=== PATIENT | female | born 1985 | race Caucasian/White ===

== ENCOUNTER 2017-12-13 10:14 | Emergency (ER) | payer MEDICAID, SELFPAY ==
[2017-12-13 10:45] VITALS: BP 127/72; PULSE 76; RESP 20; TEMP 36.8; O2SAT 98
--- NOTE | 2017-12-13 11:17 | ED_ITS ---
[facility] [place] Disposition Clinical Impression: Viral upper respiratory illness Disposition: Home, Self-Care Condition on Discharge: Good Instructions: Influenza Additional Instructions: ? Start Tamiflu today if you are going to take it. Discussed risk and possible benefits. ? Lots of rest ? Increase Fluids water, Gatorade, powerade, pedialyte,if /toddler/child ? Alternate Tylenol and / or ibuprofen as discussed for fever, aches, chills x 24 hours without medication for symptoms ? Follow up IMMEDIATELY for new or worsening Symptoms OR no noticeable improvement over the next 48-72 hours, 911 for difficulty or breathing ? You or your child area contagious until no fever, aches, chills for 24 hours with medication for symptoms Prescriptions: Brompheniramine/Pseudoephed/Dm [Bromfed DM Cough Syrup 5mL] 10 ml PO Q4HP PRN # 350 ml PRN Reason: Cough Referrals: Provider,Referral, MD [Primary Care Provider] - Time of Disposition: 11:20 Medical Decision Making - Medical Records Medical records reviewed: Yes: I reviewed the patient's medical records. Vital Signs: 12/13/17 10:45 Temperature 98.2 F Temperature Source Temporal Artery Scan Pulse Rate [Right] 76 Respiratory Rate 20 Blood Pressure [Right Arm] 127/72 Blood Pressure Mean [Right Arm] 90 Blood Pressure Source [Right Arm] Automatic Cuff Blood Pressure Position [Right Arm] Sitting 02 Sat by Pulse Oximetry 98 Oxygen Delivery Method Room Air - Casey Inquiry Pt receiving controlled substance: No Casey was queried for this patient: No [facility] [place] HPI - General Stated complaint: diarrhea Mode of Arrival: Ambulatory Source of Information: Patient Limitations: No Limitations Description of Symptoms (Recalled from Triage Doc. 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 - Related Data Previous Rx's Medication Instructions Recorded Brompheniramine/Pseudoephed/Dm 10 ml PO Q4HP PRN #350 ml 12/13/17 [Bromfed DM Cough Syrup 5mL] Allergies Allergy/AdvReac Type Severity Reaction Status Date / Time No Known Allergies Allergy Verified 12/13/17 10:49 - Worker's Comp Is this a Worker's Comp case?: No [facility] History I have reviewed the patient's past medical history: Yes - Social History Alcohol Intake: never - Psychiatric History Expresses thoughts of harming self/others: None Suicide Plan Description: No Plan ROS Obtained: Yes All systems reviewed & no additional complaints - Constitutional Constitutional: Reports body ache, Reports chills, Reports fever(s) - ENT Ears, Nose, Mouth, and Throat: Reports nasal congestion, Reports sore throat - Gastrointestinal Gastrointestingal: Reports: diarrhea Physical Exam - General General appearance: alert, in no apparent distress - Expanded ENT Exam Nose exam: Present: sinus
[2017-12-13 11:25] VITALS: BP 132/88; PULSE 68; RESP 18; TEMP 37.1
[2017-12-13 14:46] LABS: UTC Influenza A Antigen Negative (Negative); UTC Influenza B Antigen Negative (Negative)
== END 2017-12-13 11:35 | disposition home or self-care (01) ==
PROVIDERS: Emergency Provider Nurse Practitioner
DX: J06.9 Acute upper respiratory infection, unspecified (principal)
CPT/HCPCS: 87804; 99202

== ENCOUNTER 2017-12-16 17:49 | Emergency (ER) | payer MEDICAID, SELFPAY ==
[2017-12-16 18:52] VITALS: BP 127/78; PULSE 66; RESP 18; TEMP 37; O2SAT 98; BMI 30.7
--- NOTE | 2017-12-16 19:14 | HMH.EDUTC ---
[facility] [place] Disposition Clinical Impression: Influenza-like illness, Exposure to the flu Disposition: Home, Self-Care Condition on Discharge: Good Instructions: DI for Influenza -- Adult Additional Instructions: * No sign of a bacterial infection. Your symptoms and exam are spot on for the flu. * Discussed tamiflu risks, side effects, risk of allergic reaction, and possible benefits. We even discussed hallucinations and uncontrollable fevers. Is currently but not often. We are weaning . Aware safety of nursing while taking tamiflu has not been established. Child (1 year old) and other Children are taking tamiflu. wants to take tamiflu still. Agrees to discuss with pharmacist tomorrow since I am concerned about the safety. * Lots of rest * Increase fluids, water, gatorade, powerade, pedialyte if /toddler/child * Monitor Temp. Tylenol every 4 hours as needed no more then 5 times a day or 4000mg in 24 hours and/or ibuprofen every 6 hours as needed no more then 3200mg in 24 hours (as long as your primary care doctor has told you that it is ok to take both) for fever/aches/pain. ER if fever no less than 101 despite tylenol and Ibuprofen * OTC cold/flu/sinus medication is ok but pick one. Do not take multiple different ones as they have similar ingredients and you can overdose on cold medication. * You (or your child) are contagious until no fever, aches, chills x 24 hours without medication for symptoms. * * Per hospital policy, Your throat swab was sent for culture. Those results are typically sent to your primary care. Be sure to follow up in 2-3 days if no improvement so they can review those results and treat if necessary. If you don't have primary care, I recommend you get one but in the mean time, you will have to return to a walk in clinic. Prescriptions: Oseltamivir Phosphate [Tamiflu 75mg Capsule] 75 mg PO BID #10 cap Referrals: Provider,Referral, MD [Primary Care Provider] - (Follow up IMMEDIATELY for new or worsening symptoms, improvement followed by suddenly feeling worse OR no noticeable improvement over the next 48-72 hours. 911 for difficulty breathing ) Time of Disposition: 19:35 Medical Decision Making Vital Signs: 12/16/17 18:52 Temperature 98.6 F Temperature Source Temporal Artery Scan Pulse Rate [Right Radial] 66 Respiratory Rate 18 Blood Pressure [Right Arm] 127/78 Blood Pressure Mean [Right Arm] 94 02 Sat by Pulse Oximetry 98 Oxygen Delivery Method Room Air - Lab Data Lab results reviewed: Yes: I reviewed the patient's lab results. Flu A neg Flu B neg - Casey Inquiry Pt receiving controlled substance: No [facility] [place] HPI - General Stated complaint: poss flu Time Seen by Provider: 12/16/17 19:14 Mode of Arrival: Family Vehicle Source of Information: Patient Limitations: No Limitations Description of Symptoms (Recalled from Triage Doc. by RN): PT C/O HEADACHE, FEVER, BODY ACHES, CHILL, HEAD CONGESTION. HEENT Symptoms (Recalled from RN notes): Yes (HEADACHE, BODY ACHE, CHILLS, FEVER, HEAD CONGESTION) Resp Symptoms (Recalled from RN notes): No Skin Symptoms (Recalled from RN notes): No MS Symptoms (Recalled from RN notes): No Functional Status (Recalled from RN notes): NA - History of Present Illness Provider Complaint: c/o sudden onset of headache and fatigue this morning that quickly progressed to chills, fever, rhinorrhea, scratchy throat, cough. Three kids at home w/ flu currently. Tylenol and motrin hasn't really helped. 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
--- NOTE | 2017-12-16 19:24 | ED_ITS ---
[facility] [place] Disposition Clinical Impression: Influenza-like illness, Exposure to the flu Disposition: Home, Self-Care Condition on Discharge: Good Instructions: DI for Influenza -- Adult Additional Instructions: * No sign of a bacterial infection. Your symptoms and exam are spot on for the flu. * Discussed tamiflu risks, side effects, risk of allergic reaction, and possible benefits. We even discussed hallucinations and uncontrollable fevers. Is currently but not often. We are weaning . Aware safety of nursing while taking tamiflu has not been established. Child (1 year old) and other Children are taking tamiflu. wants to take tamiflu still. Agrees to discuss with pharmacist tomorrow since I am concerned about the safety. * Lots of rest * Increase fluids, water, gatorade, powerade, pedialyte if /toddler/child * Monitor Temp. Tylenol every 4 hours as needed no more then 5 times a day or 4000mg in 24 hours and/or ibuprofen every 6 hours as needed no more then 3200mg in 24 hours (as long as your primary care doctor has told you that it is ok to take both) for fever/aches/pain. ER if fever no less than 101 despite tylenol and Ibuprofen * OTC cold/flu/sinus medication is ok but pick one. Do not take multiple different ones as they have similar ingredients and you can overdose on cold medication. * You (or your child) are contagious until no fever, aches, chills x 24 hours without medication for symptoms. * * Per hospital policy, Your throat swab was sent for culture. Those results are typically sent to your primary care. Be sure to follow up in 2-3 days if no improvement so they can review those results and treat if necessary. If you don' t have primary care, I recommend you get one but in the mean time, you will have to return to a walk in clinic. Prescriptions: Oseltamivir Phosphate [Tamiflu 75mg Capsule] 75 mg PO BID #10 cap Referrals: Provider,Referral, MD [Primary Care Provider] - (Follow up IMMEDIATELY for new or worsening symptoms, improvement followed by suddenly feeling worse OR no noticeable improvement over the next 48-72 hours. 911 for difficulty breathing ) Time of Disposition: 19:35 Medical Decision Making Vital Signs: 12/16/17 18:52 Temperature 98.6 F Temperature Source Temporal Artery Scan Pulse Rate [Right Radial] 66 Respiratory Rate 18 Blood Pressure [Right Arm] 127/78 Blood Pressure Mean [Right Arm] 94 02 Sat by Pulse Oximetry 98 Oxygen Delivery Method Room Air - Lab Data Lab results reviewed: Yes: I reviewed the patient's lab results. Flu A neg Flu B neg - Casey Inquiry Pt receiving controlled substance: No [facility] [place] HPI - General Stated complaint: poss flu Time Seen by Provider: 12/16/17 19:14 Mode of Arrival: Family Vehicle Source of Information: Patient Limitations: No Limitations Description of Symptoms (Recalled from Triage Doc. by RN): PT C/O HEADACHE, FEVER, BODY ACHES, CHILL, HEAD CONGESTION. HEENT Symptoms (Recalled from RN notes): Yes (HEADACHE, BODY ACHE, CHILLS, FEVER , HEAD CONGESTION) Resp Symptoms (Recalled from RN notes): No Skin Symptoms (Recalled from RN notes): No MS Symptoms (Recalled from RN notes): No Functional Status (Recalled from RN notes): NA - History of Present Illness Provider Complaint: c/o sudden onset of headache and fatigue this morning that quickly progressed to chills, fever, rhinorrhea, scratchy throat, cough. Three kids at home w/ flu currently. Tylenol and motrin hasn't really helped. - Related Data Home Medications
[2017-12-16 19:51] LABS: UTC Influenza A Antigen Negative (Negative); UTC Influenza B Antigen Negative (Negative)
[2017-12-16 20:12] VITALS: BP 120/70; PULSE 63; RESP 18; TEMP 37.2; O2SAT 99
== END 2017-12-16 19:30 | disposition home or self-care (01) ==
PROVIDERS: Emergency Provider Nurse Practitioner Family
DX: J11.1 Influenza due to unidentified influenza virus with other respiratory manifestations (principal)
CPT/HCPCS: 87804; 99202

== ENCOUNTER → 2018-09-26 13:59 | Outpatient (CLI) | payer MEDICAID, SELFPAY ==
--- NOTE | 2018-09-26 14:04 | US_ITS ---
US thyroid HISTORY: Follow-up of thyroid nodules ITS.REASON: THYROID NODULE ORDERING PHYSICIAN: Toni Hernandez MD PATIENT AGE: 33 years Comparison: 09/24/2017 FINDINGS: The isthmus is thickened at 6 mm. There is a small cyst within the isthmus centrally at 4 mm The right lobe is 5.8 x 2.2 x 3 cm Nodule A: 8 x 6 mm mid polar region with a small cystic component centrally unchanged. Nodule B: 14 x 6 mm hypoechoic nodule with lobular margins with through transmission of sound consistent with this cyst. This had more of a solid appearance on the previous exam. The left lobe is 5.5 x 1.7 x 1.2 cm with no discrete nodule. IMPRESSION: 1. Enlarged thyroid gland. 2. No change in the size of the right-sided nodule. Previously noted mixed nodule in the lower pole on the right now has a cystic appearance
[2018-09-26 16:52] LABS: Free T4 (Free Thyroxine) 0.86 ng/dl (0.76-1.46); Thyroid Stimulating Hormone 0.36 uIU/ml (0.358-3.740)
== END ==
PROVIDERS: PCP Physician Assistant; Visit Provider Otolaryngology
DX: E07.81 Sick-euthyroid syndrome (principal); E04.1 Nontoxic single thyroid nodule
CPT/HCPCS: 36415; 76536; 84439; 84443

== ENCOUNTER → 2019-10-31 14:19 | Outpatient (CLI) | payer BC, MEDICAID, SELFPAY ==
--- NOTE | 2019-10-31 14:19 | US_ITS ---
PROCEDURE: US THYROID CLINICAL INDICATION: f/u thyroid nodule Follow-up thyroid nodules COMPARISON: THY US thyroid from 09/26/2018 FINDINGS: Right lobe: 5 x 2.2 x 2.7 cm. Homogeneous echogenicity. The 7 mm hypoechoic nodule mid polar region. 5 mm hypoechoic nodule mid polar region. These may be due to small cyst. There is a 1 x 0.7 cm solid-appearing nodule in the lower pole. This was mostly cystic and larger on the previous study previously measuring 1.4 x 0.8 cm. The left lobe is 5.1 x 2.1 x 2.1 cm with homogeneous echogenicity. The isthmus contains a 3 mm cyst and is thickened IMPRESSION: Enlarged thyroid gland bilaterally. There are 3 nodules on the right the largest at 1 cm. This previously was mostly cystic but is smaller on today's exam. This is a T rads level 3 nodule mildly suspicious. Recommend six-month follow-up Dictated by: Paul Cortes MD 10/31/2019 17:32 Electronically signed by Paul Cortes MD in [place] 10/31/2019 17:32
[2019-10-31 16:48] LABS: Free T4 (Free Thyroxine) 0.91 ng/dl (0.76-1.46); Thyroid Stimulating Hormone 0.51 uIU/ml (0.358-3.740)
== END ==
PROVIDERS: PCP Physician Assistant; Visit Provider Otolaryngology
DX: E01.0 Iodine-deficiency related diffuse (endemic) goiter (principal); E04.1 Nontoxic single thyroid nodule; E04.9 Nontoxic goiter, unspecified
CPT/HCPCS: 36415; 76536; 84439; 84443

== ENCOUNTER → 2020-05-11 15:17 | Outpatient (CLI) | payer BC, MEDICAID, SELFPAY ==
--- NOTE | 2020-05-11 15:17 | US_ITS ---
PROCEDURE: US THYROID CLINICAL INDICATION: Goiter Follow-up enlarged thyroid gland, thyroid nodules COMPARISON: THY US thyroid from 09/26/2018 US THYROID from 10/31/2019 FINDINGS: The right lobe is 5.3 x 2.1 x 2.4 cm. The isthmus is prominent at 9 mm. The left lobe is enlarged at 6 x 2.6 x 2 cm. There is an isodense slightly hypoechoic nodule in the mid aspect of the right lobe posteriorly at 7 mm unchanged. 4 mm hypoechoic nodule mid aspect of the right lobe unchanged. Complex nodule lower pole on the right at 9 x 7 mm. The nodule is unchanged in size. There is some shadowing now present from nodule with some suspected coarse calcification developing. IMPRESSION: Enlarged thyroid gland with 9 mm nodule in the lower pole on the right which may be developing some coarse calcification, probably benign. Continued six-month follow-up suggested Dictated by: Paul Cortes MD 05/13/2020 09:54 Electronically signed by Paul Cortes MD in [place] 05/13/2020 09:54
[2020-05-11 19:31] LABS: T4 (Thyroxine) 6.9 ug/dl (5.53-11.0)
[2020-05-11 19:45] LABS: Thyroid Stimulating Hormone 0.66 uIU/mL (0.465-4.68)
== END ==
PROVIDERS: PCP Physician Assistant; Visit Provider Otolaryngology
DX: E04.9 Nontoxic goiter, unspecified (principal)
CPT/HCPCS: 36415; 76536; 84436; 84443

== ENCOUNTER 2020-09-26 09:23 | Emergency (ER) | payer BC, MEDICAID, SELFPAY ==
[2020-09-26 09:40] VITALS: BP 124/87; PULSE 105; RESP 19; TEMP 36.9; O2SAT 100; BMI 34.4
--- NOTE | 2020-09-26 09:44 | HMH.EDUTC ---
[facility] [place] Disposition Clinical Impression: URI (upper respiratory infection) Qualifiers: URI type: unspecified URI Qualified Code(s): J06.9 - Acute upper respiratory infection, unspecified Disposition: Home, Self-Care Condition on Discharge: Good Instructions: DI for Strep Throat, Strep Throat, Amoxicillin Additional Instructions: *Monitor Temp, Over the counter Motrin or Tylenol as directed/as needed Tylenol every 4 hours and Motrin every 6 hours (as long as your family doctor has told you that you can take it) for fever or pain. and straight to ER if unable to lower temp less than 101.0 after medication given *Warm salt water gargles may help to soothe the throat *Throat Lozenges *Warm fluids like tea with honey may help to soothe the throat *Sleep elevated *Humidifier/Vaporizer *Flonase 2 sprays in each nostril daily but be aware that it may take 2-3 days before you notice improvement Your throat swab was sent for culture. Those results are typically sent to your primary care. Be sure to follow up in 2-3 days with your family doctor/primary care physician if no improvement so they can review those result and treat if necessary. If you don?t have a primary care doctor, I recommend you get one but in the mean time, you will have to return to a walk in clinic Follow up IMMEDIATELY for new or worsening symptoms or no Noticeable improvement over the next 48-72 hours. 911 for difficulty breathing or swallowing Prescriptions: Amoxicillin [Amoxicillin 500mg Cap] 500 mg PO BID 10 Days #20 cap Transmission Status: Pending to [id number] Fluticasone Propionate [Flonase 50mcg nasal spray 16gm] 1 spr NS DAILY #1 bottle Transmission Status: Pending to [id number] Referrals: Marylu Han [Primary Care Provider] - As needed Time of Disposition: 09:51 Medical Decision Making - Casey Inquiry Pt receiving controlled substance: No Casey was queried for this patient: No Vital Signs: 09/26/20 09:40 Temperature 98.4 F Temperature Source Oral Pulse Rate [Radial] 105 H Respiratory Rate 19 Blood Pressure [Right Arm] 124/87 Blood Pressure Mean [Right Arm] 99 Blood Pressure Source [Right Arm] Automatic Cuff Blood Pressure Position [Right Arm] Sitting 02 Sat by Pulse Oximetry 100 Oxygen Delivery Method Room Air - Lab Data Lab results reviewed: Yes: I reviewed the patient's lab results. Medical Decision Narrative: Patient rapid strep showed negative however patient presents with swelling and exudate like that commonly seen with strep throat Patient state that she has taken amoxicillin before without reactions or complications [facility] [place] HPI - General Stated complaint: Sore throat Time Seen by Provider: 09/26/20 09:44 Mode of Arrival: Ambulatory Source of Information: Patient Limitations: No Limitations Description of Symptoms (Recalled from Triage Doc. by RN): sore throat since last night HEENT Symptoms (Recalled from RN notes): Yes Resp Symptoms (Recalled from RN notes): No Skin Symptoms (Recalled from RN notes): No MS Symptoms (Recalled from RN notes): No Functional Status (Recalled from RN notes): wnl - History of Present Illness Provider Complaint: Patient states that she has several small children at home and thinks they may have brought home strep throat to her States that she started having sore throat last night and felt like her throat was swollen and when she looked in there it had white patches everywhere so she come in to get checked - Related Data Home Medications Medication Instructions Recorded Confirmed Sertraline HCl [Zoloft 100mg 100 mg PO DAILY 09/01/19 07/27/20 tablet] amitriptyline 50 mg tablet 50 mg PO tab 05/17/20 07/27/20 fluconazole 200 mg tablet PO 05/17/20 07/27/20 sumatriptan succinate 100 mg tablet ea PO 05/17/20 07/27/20 topiramate 50 mg capsule,extended ea PO 05/17/20 07/27/20 release 24 hr Previous Rx's Medication Instructions Recorded Amoxicillin
[2020-09-26 09:59] VITALS: BP 124/87; PULSE 105; RESP 19; TEMP 36.9; O2SAT 100
[2020-09-26 13:06] LABS: UTC Strep Screen (Rapid) Negative (Negative)
== END 2020-09-26 10:03 | disposition home or self-care (01) ==
PROVIDERS: Emergency Provider Nurse Practitioner; PCP Physician Assistant
DX: J06.9 Acute upper respiratory infection, unspecified (principal); G43.709 Chronic migraine without aura, not intractable, without status migrainosus; F17.210 Nicotine dependence, cigarettes, uncomplicated; Z79.899 Other long term (current) drug therapy
CPT/HCPCS: 87880; 99201

== ENCOUNTER → 2020-10-29 14:30 | Outpatient (CLI) | payer BC, MEDICAID, SELFPAY ==
--- NOTE | 2020-10-29 14:30 | US_ITS ---
PROCEDURE: US THYROID CLINICAL INDICATION: goiter F/u thyroid nodules, enlarged COMPARISON: US US THYROID from 05/11/2020 FINDINGS: Right lobe: 2.5cm x 5.6cm x 2.4cm Left lobe: 1.9cm x 5.2cm x 2.2cm Isthmus: The isthmus is thickened at 7 mm not significantly changed. A small 3 mm cyst is present within the isthmus on the left. Additional findings: There are multiple small hypoechoic nodules on right which are unchanged. A mixed nodules present in the lower pole at 7 mm unchanged. The left lobe has unremarkable appearance. IMPRESSION: Enlarged thyroid gland with multiple small nodules on the right overall not significantly changed. Dictated by: Paul Cortes MD 10/30/2020 05:20 Paul Cortes MD in [place] 10/30/2020 05:20
== END ==
PROVIDERS: PCP Physician Assistant; Visit Provider Otolaryngology
DX: E04.9 Nontoxic goiter, unspecified (principal)
CPT/HCPCS: 76536

== ENCOUNTER → 2020-10-29 15:01 | Outpatient (CLI) | payer BC, MEDICAID, SELFPAY ==
[2020-10-29 16:43] LABS: Free T4 (Free Thyroxine) 0.89 ng/dl (0.78-2.19)
[2020-10-29 16:56] LABS: Thyroid Stimulating Hormone 0.49 uIU/mL (0.465-4.68)
[2020-10-31 18:14] LABS: Thyroid Peroxidase Antibodies <9 IU/mL (0-34)
[2020-11-03 10:36] LABS: Thyroid Stimulating Immunoglob <0.10 IU/L (0.00-0.55)
== END ==
PROVIDERS: Visit Provider Otolaryngology
DX: E04.9 Nontoxic goiter, unspecified (principal)
CPT/HCPCS: 36415; 84439; 84443; 84445; 86376

== ENCOUNTER 2021-11-14 07:45 | Emergency (ER) | payer BC, MEDICAID, SELFPAY ==
[2021-11-14 07:52] VITALS: BP 143/95; PULSE 112; RESP 16; TEMP 36.7; O2SAT 99; BMI 37.2
--- NOTE | 2021-11-14 07:57 | XR_ITS ---
FINAL REPORT CLINICAL HISTORY: pain/cattle injury FINDINGS: LEFT SHOULDER Three views demonstrate no acute fracture or dislocation. The joint spaces appear normal. The visualized bony structures are well aligned. No soft tissue abnormality is seen. IMPRESSION: No acute process. Reviewed, Interpreted and Dictated by Joel Ramos III, MD Transcribed by Flory Mills Authenticated by Joel Ramos III, MD on 11/14/2021 09:10:14 AM [facility]
--- NOTE | 2021-11-14 08:03 | HMH.EDGENADL ---
ED Disposition Clinical Impression: Left shoulder strain Qualifiers: Encounter type: initial encounter Qualified Code(s): S46.912A - Strain of unspecified muscle, fascia and tendon at shoulder and upper arm level, left arm, initial encounter Disposition: Home, Self-Care Condition on Discharge: Good Instructions: Muscle Strain Prescriptions: Cyclobenzaprine HCl [Cyclobenzaprine 5mg Tab*] 5 mg PO TIDP PRN #30 tab PRN Reason: Moderate To Severe Pain Transmission Status: Pending to [id number] Referrals: Agnieszka Schulte APRN [Primary Care Provider] - - Critical Care Critical Care Time: No Attestation: On 11/14/21, the high probability of a clinically significant, sudden or life threatening deterioration of the following system(s) required my full and direct attention, intervention and personal management. The time I documented below is in addition to time spent performing reported procedures but includes the following listed in this critical care notation. Medical Decision Making - Medical Records Medical records reviewed: Yes: I reviewed the patient's medical records. - Casey Inquiry Pt receiving controlled substance: No Vital Signs: 11/14/21 07:52 Temperature 98.1 F Temperature Source Oral Pulse Rate [Left Radial] 112 H Respiratory Rate 16 Blood Pressure [Right Arm] 143/95 H Blood Pressure Mean [Right Arm] 111 Blood Pressure Source [Right Arm] Automatic Cuff Blood Pressure Position [Right Arm] Sitting 02 Sat by Pulse Oximetry 99 Oxygen Delivery Method Room Air Orders (Tests/Meds): ORDERS Category Date Time Status XR shoulder LT min 2V Stat Exams 11/14/21 07:57 Taken General Adult HPI - General Chief complaint: PAIN Stated complaint: a/o 11/13 injured left shoulder Time Seen by Provider: 11/14/21 08:03 Mode of Arrival: Ambulatory Limitations: No Limitations Description of Symptoms (Recalled from ER Triage Doc. by RN): pt to ed c/o left shoulder pain. 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 pt states this pain is at the base of her shoulder and is worse with movement. - History of Present Illness HPI narrative: left shoulder pain after pulling on cow work yest sudden onset constant Radiation: non-radiation Severity: moderate Quality: constant Consistency: constant Relieving factors: immobilization Exacerbating factors: movement Associated symptoms: denies other symptoms - Related Data Home Medications Medication Instructions Recorded Confirmed Sertraline HCl [Zoloft 100mg 100 mg PO DAILY 09/01/19 11/09/20 tablet] amitriptyline 50 mg tablet 50 mg PO tab 05/17/20 11/09/20 fluconazole 200 mg tablet PO 05/17/20 11/09/20 sumatriptan succinate 100 mg tablet ea PO 05/17/20 11/09/20 topiramate 50 mg capsule,extended ea PO 05/17/20 11/09/20 release 24 hr Previous Rx's Medication Instructions Recorded Amoxicillin [Amoxicillin 500mg 500 mg PO BID 10 Days #20 cap 09/26/20 Cap] Fluticasone Propionate [Flonase 1 spr NS DAILY #1 bottle 09/26/20 50mcg nasal spray 16gm] Cyclobenzaprine HCl 5 mg PO TIDP PRN #30 tab 11/14/21 [Cyclobenzaprine 5mg Tab*] Allergies Allergy/AdvReac Type Severity Reaction Status Date / Time No Known Allergies Allergy Verified 11/09/20 08:46 [facility] History - Hepatitis A Screen Drug use history?: No High risk sexual behaviors?: No History of sexually transmitted infection?: No Currently employed?: No Childcare worker?: No Do you have indoor plumbing?: Yes Do you have electricity?: Yes Attestation statement:: This patient has been screened for Hepatitis A risk factors. Medical History: Reports:: Migraine Denies:: Cancer, Diabetes Mellitus Type 1, Diabetes Mellitus Type 2, Hypertension, MRSA Other Medical History: Reports: Other Comment: thyroid nodules. Other Surgeries: Yes: Tubal Ligation, Other Amputation: No Fractures: No Comment: breast implants - Soc
--- NOTE | 2021-11-14 08:14 | PC.NURSE ---
Patient to radiology with electroencephalograph technologist
[2021-11-14 08:50] VITALS: BP 117/86; O2SAT 98
[2021-11-14 09:32] VITALS: BP 121/88; PULSE 101; RESP 18; TEMP 36.7; O2SAT 98
== END 2021-11-14 09:35 | disposition home or self-care (01) ==
PROVIDERS: Emergency Provider Emergency Medicine; PCP Nurse Practitioner Family
DX: S46.912A Strain of unspecified muscle, fascia and tendon at shoulder and upper arm level, left arm, initial encounter (principal); X50.0XXA Overexertion from strenuous movement or load, initial encounter; Y92.73 Farm field as the place of occurrence of the external cause; G43.709 Chronic migraine without aura, not intractable, without status migrainosus; F17.210 Nicotine dependence, cigarettes, uncomplicated
CPT/HCPCS: 73030; 99282

== ENCOUNTER 2023-10-25 09:59 | Outpatient (CLI) | payer BC, MEDICAID, SELFPAY ==
--- NOTE | 2023-10-25 10:00 | US_ITS ---
PROCEDURE: US TRANSVAGINAL CLINICAL INDICATION: AUB COMPARISON: No exams were available for comparison FINDINGS: Transvaginal sonographic images of the pelvis were obtained. UTERUS: 7.6 cm x 4.8 cmx 4.3 cm retroverted, retroflexed with a combined endometrial thickness of 13.1mm. A nabothian cyst is present in the cervix measuring 8.2 mm. There appears to be a 2.0 cm x 0.6 cm polyp in the fundus of the uterus. There is a subserosal fibroid on the right side of the posterior uterus measuring 2.8 cm x 2.1 cm x 3.1 cm. LEFT OVARY: 2.5 cmx2.7 cmx1.8cm with a volume of 6.6ml. There is a follicle measuring 1.8 cm x 1.4 cm x 1.8 cm. There are internal echoes possibly consistent with a hemorrhagic cyst. RIGHT OVARY: 3.2cmx 2.1cmx2.0cm with a volume of 7ml. There are several small peripheral follicles. Both ovaries are seen and appear normal. Doppler flow to both ovaries are seen. There is no fluid in the cul-de-sac. IMPRESSION: 1. Retroverted retroflexed uterus. Within the endometrium is a polyp measuring 2 cm. 2. There is a small nabothian cyst in the cervix. 3. There is a 3.1 cm fibroid in the posterior subserosal uterus. 4. Both ovaries are seen and appear normal. The left ovary has a small hemorrhagic cyst measuring 1.8 cm. 5. No fluid in the cul-de-sac. Dictated by: Edmond Grimaldo MD 10/25/2023 12:01 Edmond Grimaldo MD in [place] 10/25/2023 12:01
== END 2023-10-25 23:59 ==
LOC: RAD 10:00
PROVIDERS: PCP Nurse Practitioner Family; Visit Provider Obstetrics & Gynecology
DX: N93.9 Abnormal uterine and vaginal bleeding, unspecified (principal)
CPT/HCPCS: 76830

== ENCOUNTER 2023-11-21 16:39 | Outpatient (CLI) | payer BC, MEDICAID, SELFPAY ==
[2023-11-21 16:53] LABS: Basophils # 0.1 K/mm3 (0-0.2); Basophils % 0.7 % (0.1-2.0); Eosinophils # 0.2 K/mm3 (0.0-0.4); Hematocrit 40.8 % (37.0-47.0); Hemoglobin 14.1 g/dL (12.2-16.2); Lymphocytes % 32.3 % (10-50); Mean Corpuscular HGB Conc 34.6 g/dL (31.8-35.4); Mean Corpuscular Hemoglobin 30.5 pg (27.0-31.2); Mean Corpuscular Volume 88.2 fl (81-99); Mean Platelet Volume 8.2 fl (7.4-10.4); Monocytes # 0.3 K/mm3 (0.1-1.0); Monocytes % 3.1 % (1.7-9.3); Neutrophils # 5.8 K/mm3 (1.8-7.8); Neutrophils % 61.9 % (37.0-80.0); Platelet Count 310 K/mm3 (142-424); Red Blood Count 4.63 M/mm3 (4.20-5.40); White Blood Count 9.4 K/mm3 (4.8-10.8)
[2023-11-21 17:15] LABS: Alanine Aminotransferase 14 U/L (12-78); Albumin Level 4.5 g/dl (3.5-5.0); Albumin/Globulin Ratio 1.7 (1.1-1.8); Alkaline Phosphatase 64 U/L (38-126); Anion Gap 11.5 mEq/L (5-15); Aspartate Amino Transferase 19 U/L (14-36); Bilirubin,Total 0.3 mg/dl (0.2-1.3); Blood Urea Nitrogen 20 mg/dl (7-17); Calcium 10.2 mg/dl (8.4-10.2); Carbon Dioxide 25 mmol/L (22.0-30.0); Chloride 107 mmol/L (98-107); Estimated Glomerular Filt Rate 56 ml/min (>60); GFR (African American) 68 ML/MIN (>60); Globulin 2.6 g/dL (1.3-3.2); Glucose 99 mg/dl (74-100); Potassium 4.5 mmoL/L (3.5-5.1); Sodium 139 mmol/L (136-145); Total Protein,Serum 7.1 g/dl (6.3-8.2)
[2023-11-21 17:32] LABS: HCG,Quantitative < 2 mIU/ml (0-5.42)
== END 2023-11-21 23:59 ==
LOC: LAB 16:39
PROVIDERS: PCP Emergency Medicine; Visit Provider Obstetrics & Gynecology
DX: N93.9 Abnormal uterine and vaginal bleeding, unspecified (principal)
CPT/HCPCS: 36415; 80053; 84702; 85025

== ENCOUNTER 2023-11-28 09:21 | Day surgery (SDC) | payer BC, MEDICAID, SELFPAY ==
[2023-11-23 16:37] VITALS: BMI 28.7
[2023-11-28] VITALS (9 sets, daily range): BP systolic 110–127; BP diastolic 68–87; PULSE 79–108; RESP 16–23; TEMP 36.7–43; O2SAT 96–100
[2023-11-28] MEDS: LACTATED RINGERS 1000ML 1,000 ML 25 ML IV (09:29)
[2023-11-28] MEDS: ACETAMINOPHEN 500MG TAB 1000 MG PO (09:32)
--- NOTE | 2023-11-28 09:51 | P.PNANES_ITS ---
[facility] Disclaimer: The information contained in this section may have been updated after the patient was seen, as this information can be updated by other users. Medical History Abnormal uterine bleeding Surgical History H/O tubal ligation Hx of breast implants, bilateral Family History Other Alcoholism Anemia Asthma Cancer Diabetes Hyperlipidemia Hypertension Substance abuse Thyroid disorder Social History Smoking Status: Current every day smoker tobacco type: cigarettes packs per day: 1 second hand exposure: Yes alcohol intake: never substance use type: denies use current occupational status: other Travel in the last 8 weeks: None household members: family housing: house [facility] Anesthesia Checklist Patient Identification Patient Identification: Arm Band Structural Data Admitted From: Home Planned Operative Procedure/s: Hysteroscopy, D&C, Myosure/Novasure Ablation Consent for Planned Operative Procedure(s) Verified: Yes Verified Documents: Surgical Consent and History and Physical NPO Status Verified Time NPO: 00:00 Additional verifications Anesthesia Reactions: No Airway Assessment Mallampati Score:: Class II C-Spine Mobility Assessed: Yes TMJ Mobility Assessed: Yes Dentition: Good Dentition Neurological Assessment Level of Consciousness: Awake and Alert Anesthesia Plan Anesthesia Risk discussed: Yes Anesthesia Plan: Verified ASA Class: II Anesthesia Type: General
[2023-11-28] MEDS: SILVER NITRATE APPLICATOR 1 EACH TP (11:39)
--- NOTE | 2023-11-28 11:51 | EXP.OP.NOTE ---
Date of procedure: 11/28/23 Pre-op Diagnosis:: 1. Abnormal uterine bleeding 2. Endometrial polyp Post-op Diagnosis:: 1. Abnormal uterine bleeding 2. Endometrial polyp Procedure performed:: Hysteroscopy, Myosure polypectomy and curettage, Novasure endometrial ablation Surgeon:: Bethany Castaneda DO Coal Mine Inspector(s):: N/a SHERIFF'S OFFICER:: Keeley Greco Anesthesia: GETA Estimated blood loss (mL): 5 Clinical Note:: Mrs Mary Ann Myers is a very pleasant 38 yo [id number] who presents to [facility] for scheduled procedure. She complains of abnormal uterine bleeding. For the past 7 years her periods have been about twice a month. Flow is heavy and painful and lasts 7 days. She had abnormal thyroid during her last . Thyroid has been monitored by ENT. She has never needed thyroid hormone replacement. History of tubal ligation. Pelvic ultrasound 10/25/23 demonstrated retroverted retroflexed uterus. Within the endometrium is a polyp measuring 2 cm. 2. There is a small nabothian cyst in the cervix. 3. There is a 3.1 cm fibroid in the posterior subserosal uterus. 4. Both ovaries are seen and appear normal. The left ovary has a small hemorrhagic cyst measuring 1.8 cm. 5. No fluid in the cul-de-sac. Operative findings:: 1. On bimanual exam, uterus midposition, retroverted, normal size. No adnexal masses palpated 2. On hysteroscopic exam, large endometrial polyp present and obstructing view of left tubal ostia. Right tubal ostia easily visualized. Remainder of endometrium appeared grossly normal. Operative note:: Risks, benefits and alternatives were discussed with the patient. Risks include but are not limited to bleeding, infection, uterine perforation and VTE. Patient voiced understanding and agreed to proceed. She was wheeled back to the operating room and placed under general anesthesia without difficulty. She was placed in dorsal lithotomy position and prepped and draped in the normal sterile fashion. Straight catheter was used to drain the bladder. A bimanual exam was performed. A weighted Auvard was placed in the vaginal vault. Single tooth tenaculum was placed on anterior lip of the cervix. Uterus sounded to 9. Sequential Huber dilators were used to dilate the cervical os. Hysteroscope was tested inserted through the cervix without difficulty. Endometrial cavity was evaluated. See findings above. Pictures were taken. Myosure was inserted through the hysteroscope. Polypectomy and uterine curettage was performed for protocol under direct visualization. Hysteroscope with Myosure was removed. Endometrial polyp and curettings will be sent to pathology for review. Novasure sure sound was used to obtain uterine length. Uterus measured 4.5 cm in length and 4.3 cm in cavity width. Novasure deviced was inserted and ablation was performed per protocol at a power of 106 w for 79 seconds. Novasure device was removed. Hysteroscope was reinserted and cavity revealed adequate burn and no uterine perforation. Hysteroscope was removed. Instruments were removed from the vagina. Small amount of oozing noted at Tenaculum site. 2-0 Chromic was used to ligate bleeding. Hemostasis was noted. Patient was awaken from anesthesia without difficulty. She was transported to recovery room in stable condition. Patient will be discharged home when awake and ambulating. She was given postop instructions as well as instructions to follow-up in the office in 2 weeks at which time pathology will be reviewed. Condition: stable Disposition: same day Specimens:: 1. Endometrial polyp and curettings Complications:: None
--- NOTE | 2023-11-28 11:53 | EXP.ANES.I ---
[facility] Anesthesia Record Part I Anesthesia Record I Intake, IV Amount: 1,000 Hydration: Adequate Estimated blood loss (mL): 5 Urine output (mL): 0 Blood Pressure: 110/68 SaO2: 96 Pulse Rate: 81 Airway Patency: Patent Respiratory Rate: 23 Temperature: 98.1 F Patient is:: Drowsy and Oral/Nasal airway Stable to PACU at:: 11:50
[2023-11-28] MEDS: MORPHINE 2MG/ML SYRINGE 2 MG IV (12:00)
--- NOTE | 2023-11-29 15:12 | EXP.ANES.II ---
[facility] Anesthesia Record Part II Anesthesia Record Part II Discharge Time: 12:20 Destination: Surgical Day Care (OP Surgery) PACU nurse assessment reviewed?: Yes Patient Condition:: Good Anesthesia Complications:: None Swallowing reflex intact?: Yes Airway Patency: Patent Cyanosis?: No Blood Pressure: 110/78 SaO2: 99 Respiratory Rate: 16 Pulse Rate: 95 Temperature: 98.2 F Mental Status: Alert & Oriented Pain level:: 3 Nausea and/or vomitting:: None Intake, IV Amount: 0 Hydration: Adequate
[2023-11-29 15:13] VITALS: BP 110/78; PULSE 95; RESP 16; TEMP 36.8; O2SAT 99
== END 2023-11-28 12:46 | disposition home or self-care (01) ==
PROVIDERS: PCP Emergency Medicine; Visit Provider Obstetrics & Gynecology
PROC: (CPT 58563; principal; 2023-11-28 11:00)
DX: N93.9 Abnormal uterine and vaginal bleeding, unspecified (principal); Z98.51 Tubal ligation status; N84.0 Polyp of corpus uteri; N88.8 Other specified noninflammatory disorders of cervix uteri; D25.2 Subserosal leiomyoma of uterus
CPT/HCPCS: 58563; J2405